=== PATIENT | female | born 2000 | race Two or more races ===

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

== ENCOUNTER 2023-02-14 09:44 | Emergency (ER) | payer OTHER ==
[~2023-02-14] VITALS: Ht 154.9 cm; Wt 91.0 kg
[2023-02-14 09:46] VITALS: BP 123/77
[2023-02-14 12:49] LABS: CLARITY URINE CLEAR (CLEAR); COLOR URINE YELLOW (YELLOW); KETONES URINE NEGATIVE (NEGATIVE); LEUKOCYTE ESTERASE URINE 2+ (NEGATIVE); NITRITE URINE NEGATIVE (NEGATIVE); OCCULT BLOOD URINE NEGATIVE (NEGATIVE); PH URINE 6.5 (4.5-8.0); PROTEIN URINE NEGATIVE (NEGATIVE); SPECIFIC GRAVITY URINE 1.023 (1.005-1.030); UROBILINOGEN URINE 0.2 E.U./dL (0.2-1.0)
[2023-02-14] MEDS ORDERED: METR-167 PO (13:04)
[2023-02-14] MEDS ORDERED: SULF1TAB48 PO (13:04)
[2023-02-14] MEDS ORDERED: ACET-2708 PO (13:06)
== END 2023-02-14 13:16 | disposition home or self-care (01) ==
LOC: ER 09:44
DX: N39.0 Urinary tract infection, site not specified (principal)
CPT/HCPCS: 81003; 81025; 87210; 87491; 87591; 99283

== ENCOUNTER 2023-02-22 09:33 | Emergency (ER) | payer OTHER ==
[~2023-02-22] VITALS: Ht 154.9 cm; Wt 87.0 kg
[~2023-02-22 09:33] MED LIST: ACET-2708 PO; METR-167 PO; SULF1TAB48 PO
[2023-02-22 09:38] VITALS: BP 122/71
[2023-02-22 10:45] LABS: CLARITY URINE CLOUDY (CLEAR); COLOR URINE YELLOW (YELLOW); KETONES URINE TRACE (NEGATIVE); LEUKOCYTE ESTERASE URINE 3+ (NEGATIVE); NITRITE URINE NEGATIVE (NEGATIVE); OCCULT BLOOD URINE TRACE (NEGATIVE); PROTEIN URINE TRACE (NEGATIVE); SPECIFIC GRAVITY URINE 1.027 (1.005-1.030)
[2023-02-22] MEDS ORDERED: NITR-87 MT (11:51)
[2023-02-22] MEDS ORDERED: PYR200 MT (11:51)
[2023-02-22] MEDS ORDERED: FLUC200T MT (12:11)
== END 2023-02-22 12:30 | disposition home or self-care (01) ==
LOC: ER 09:33
DX: R30.0 Dysuria (principal); E11.9 Type 2 diabetes mellitus without complications
CPT/HCPCS: 81003; 81025; 87106; 99283

== ENCOUNTER 2023-03-28 10:10 | Emergency (ER) | payer OTHER ==
[~2023-03-28] VITALS: Ht 154.9 cm; Wt 90.7 kg
[~2023-03-28 10:10] MED LIST changes: +FLUC200T MT; +NITR-87 MT; +PYR200 MT
[2023-03-28 10:14] VITALS: BP 108/68
[2023-03-28 10:54] LABS: CLARITY URINE CLOUDY (CLEAR); COLOR URINE YELLOW (YELLOW); KETONES URINE NEGATIVE (NEGATIVE); LEUKOCYTE ESTERASE URINE 3+ (NEGATIVE); NITRITE URINE NEGATIVE (NEGATIVE); OCCULT BLOOD URINE 3+ (NEGATIVE); PROTEIN URINE 1+ (NEGATIVE); SPECIFIC GRAVITY URINE 1.015 (1.005-1.030); UROBILINOGEN URINE 0.2 E.U./dL (0.2-1.0)
[2023-03-28] MEDS ORDERED: CEFP200T13 MT (11:17)
[2023-03-28] MEDS ORDERED: PYR200 MT (11:18)
== END 2023-03-28 12:00 | disposition home or self-care (01) ==
LOC: ER 10:10
DX: R30.9 Painful micturition, unspecified (principal); E11.9 Type 2 diabetes mellitus without complications
CPT/HCPCS: 81003; 81025; 87077; 99283

== ENCOUNTER 2023-04-14 14:50 | Emergency (ER) | payer OTHER ==
[~2023-04-14] VITALS: Ht 154.9 cm; Wt 89.0 kg
[~2023-04-14 14:50] MED LIST changes: +CEFP200T13 MT
[2023-04-14 14:53] VITALS: BP 113/73; PULSE 71; RESP 16; TEMP 98.2; O2SAT 99
[2023-04-14 17:07] LABS: CLARITY URINE CLOUDY (CLEAR); COLOR URINE ORANGE (YELLOW); KETONES URINE 3+ (NEGATIVE); LEUKOCYTE ESTERASE URINE 3+ (NEGATIVE); NITRITE URINE POSITIVE (NEGATIVE); OCCULT BLOOD URINE NEGATIVE (NEGATIVE); PROTEIN URINE 1+ (NEGATIVE); SPECIFIC GRAVITY URINE 1.023 (1.005-1.030)
== END 2023-04-14 18:34 | disposition left against medical advice (07) ==
LOC: ER 14:50
DX: Z53.21 Procedure and treatment not carried out due to patient leaving prior to being seen by health care provider (principal)
CPT/HCPCS: 81003; 81025; 99281